=== PATIENT | male | born 1995 | race Caucasian/White ===

== ENCOUNTER 2018-11-24 18:55 | Emergency (ER) | payer OTHER ==
[~2018-11-24] VITALS: Ht 170.2 cm; Wt 60.0 kg
[2018-11-24 19:07] VITALS: BP 122/55
[2018-11-24 19:31] LABS: BASOPHILS # (AUTO) 0.04 x10^3/uL (0-0.1); BASOPHILS % (AUTO) 1 % (0-1); EOSINOPHILS # (AUTO) 0.21 x10^3/uL (0-0.4); EOSINOPHILS % (AUTO) 3 % (1-7); LYMPHOCYTES # (AUTO) 2.35 x10^3/uL (1-3.4); LYMPHOCYTES % (AUTO) 34 % (22-44); MD NO; MEAN CORPUSCULAR HEMOGLOBIN 31.4 pg (27.5-34.5); MEAN CORPUSCULAR HGB CONC 34.8 g/dL (33.2-36.2); MEAN CORPUSCULAR VOLUME 90.1 fL (81-97); MONOCYTES # (AUTO) 0.78 x10^3/uL (0.2-0.8); MONOCYTES % (AUTO) 11 % (2-9); NEUTROPHILS # (AUTO) 3.58 x10^3/uL (1.8-6.8); NEUTROPHILS % (AUTO) 52 % (42-75); PLATELET COUNT 313 x10^3/uL (130-400); RED CELL DISTRIBUTION WIDTH 14.1 % (9.4-14.8)
[2018-11-24 19:39] LABS: ALANINE AMINOTRANSFERASE 23 U/L (12-78); ALBUMIN 4.4 g/dL (3.4-5.0); ANION GAP 6 mmol/L (5-15); CALCIUM 9.1 mg/dL (8.5-10.1); CHLORIDE 108 mmol/L (98-107); CREATININE 0.93 mg/dL (0.7-1.3)
[2018-11-24 19:41] LABS: ALKALINE PHOSPHATASE 118 U/L (45-117); BILIRUBIN,TOTAL 0.3 mg/dL (0.2-1.0); TOTAL PROTEIN 7.5 g/dL (6.4-8.2)
--- NOTE | 2018-11-24 20:15 | NUR ---
ASSUMED CARE AT THIS TIME. PT HERE WITH RIGHT SIDED ABD PAIN X 2 WEEKS. STATES PAIN IS WORSE TODAY. PT WITH SOME N/V. PT SEEN IN PIT. LABS AND US BACK AT THIS TIME. POC DISCUSSED. WILL CONTINUE TO MONITOR.
[2018-11-24] MEDS ORDERED: ACETAMINOPHEN 325 MG TABLET ONE (20:21)
[2018-11-24] MEDS ORDERED: MAALOX/HYOSCYAMINE/LIDOCAINE 45 ML BTL ONE (20:21)
--- NOTE | 2018-11-24 20:25 | NUR ---
PT MEDICATED PER DEC. RIGHTS VERIFIED PRIOR. 3 P'S ADDRESSED. POC DISCUSSED. PT TO BE DC.
[2018-11-24] MEDS ORDERED: MAALOX/HYOSCYAMINE/LIDOCAINE 45 ML BTL PO ONE (20:30)
--- NOTE | 2018-11-24 20:38 | NUR ---
PT GIVEN DC PAPERWORK. PT VERBALIZD UNDERSTANDING. PT AWARE TO FOLLOW UP WITH PCP.
[2018-11-24] MEDS ORDERED: ACETAMINOPHEN 325 MG TABLET PO ONE (21:00)
== END 2018-11-24 20:47 | disposition home or self-care (01) ==
LOC: ED 20:38
DX: K29.00 Acute gastritis without bleeding (principal)
CPT/HCPCS: 36415; 76700; 80053; 83690; 85025; 99284